=== PATIENT | male | born 1950 | race Caucasian/White ===

== ENCOUNTER 2017-02-16 09:18 | Inpatient (IN) | payer BC, OTHER ==
[~2017-02-16] VITALS: Ht 182.9 cm; Wt 113.4 kg
[2017-02-16 09:18] VITALS: BP_SYST 100
[2017-02-16] MEDS ORDERED: NACL 0.9% 1,000 ML IV ONE ×2 (09:30→11:00)
[2017-02-16 09:54] LABS: HEMATOCRIT 38.8 % (36-54); HEMOGLOBIN 13.3 g/dL (14.0-18.0); MEAN CORPUSCULAR HEMOGLOBIN 30 pg (27-31); MEAN CORPUSCULAR HGB CONC 34 % (32-36); MEAN CORPUSCULAR VOLUME 87 fL (79.0-98.0); PLATELET COUNT (AUTO) 107 K/uL (130-430); RED BLOOD CELL COUNT(AUTO) 4.45 MIL/uL (4.2-6.2)
[2017-02-16 10:01] LABS: WHITE BLOOD COUNT (AUTO) 2.7 K/uL (4.8-10.8)
[2017-02-16 10:07] LABS: CALCIUM 8.5 mg/dL (8.4-11.0); CREATININE 1.48 mg/dL (0.55-1.30); POTASSIUM 3.8 mmol/L (3.5-5.1); PROTHROMBIN TIME 10.4 SECS (9.5-12.5)
[2017-02-16 10:13] LABS: ALBUMIN 3.7 g/dL (3.4-4.8); TOTAL BILIRUBIN 0.4 mg/dL (0.0-1.0)
[2017-02-16 10:31] LABS: ATYPICAL LYMPHOCYTES % 10 % (0-0); BAND % (MANUAL) 4 % (0-6); BASOPHILS % (MANUAL) 0 % (0-2); EOSINOPHILS % (MANUAL) 0 % (0-7); LYMPHOCYTES % (MANUAL) 20 % (20-46); MONOCYTES % (MANUAL) 16 % (0-11)
[2017-02-16] MEDS ORDERED: FAMO40TA7 PO (11:34)
[2017-02-16] MEDS ORDERED: LISI40TA4 PO (11:34)
[2017-02-16] MEDS ORDERED: DUTA0.5C PO (11:34)
[2017-02-16] MEDS ORDERED: OMEG-128 PO (11:34)
[2017-02-16] MEDS ORDERED: NOR10 PO (11:34)
[2017-02-16] MEDS ORDERED: CARV12.548 PO (11:34)
[2017-02-16] MEDS ORDERED: VITD2000 PO (11:34)
[2017-02-16] MEDS ORDERED: ASA81 PO (11:34)
[2017-02-16 12:53] VITALS: BP_SYST 128
[2017-02-16] MEDS: NACL 0.9% 1,000 ML IV SCH (12:56)
[2017-02-16 13:11] VITALS: BP_SYST 128
[2017-02-16 16:00] VITALS: BP_SYST 130
[2017-02-16 20:00] VITALS: BP_SYST 150
[2017-02-17] VITALS: BP_SYST 140
[2017-02-17] MEDS ORDERED: ACETAMINOPHEN 325 MG TABLET PO PRN (00:45)
[2017-02-17] MEDS: NACL 0.9% 1,000 ML IV SCH ×2 (02:03→17:41)
[2017-02-17 04:00] VITALS: BP_SYST 143
[2017-02-17 07:55] LABS: BASOPHILS % (AUTO) 0.3 % (0.0-2.0); EOSINOPHILS % (AUTO) 0.2 % (0.0-4.0); HEMATOCRIT 38.3 % (36-54); HEMOGLOBIN 12.7 g/dL (14.0-18.0); LYMPHOCYTES # (AUTO) 0.8 K/uL (1.0-5.5); LYMPHOCYTES % (AUTO) 30.2 % (20.5-51.5); MEAN CORPUSCULAR HEMOGLOBIN 29 pg (27-31); MEAN CORPUSCULAR HGB CONC 33 % (32-36); MEAN CORPUSCULAR VOLUME 88 fL (79.0-98.0); MONOCYTES # (AUTO) 0.5 K/uL (0.0-1.0); MONOCYTES % (AUTO) 18.5 % (1.7-9.3); NEUTROPHILS # (AUTO) 1.2 K/uL (1.8-7.7); PLATELET COUNT (AUTO) 93 K/uL (130-430); RED BLOOD CELL COUNT(AUTO) 4.36 MIL/uL (4.2-6.2); RED CELL DISTRIBUTION WIDTH 12.6 % (9.0-15.0); WHITE BLOOD COUNT (AUTO) 2.6 K/uL (4.8-10.8)
[2017-02-17 07:57] VITALS: BP_SYST 130
[2017-02-17 08:14] LABS: POTASSIUM 3.5 mmol/L (3.5-5.1)
[2017-02-17 08:15] LABS: CREATININE 1.05 mg/dL (0.55-1.30)
[2017-02-17 08:19] LABS: ALBUMIN 3.3 g/dL (3.4-4.8); PHOSPHORUS 2.9 mg/dL (2.7-4.5); TOTAL BILIRUBIN 0.5 mg/dL (0.0-1.0)
[2017-02-17 08:28] LABS: NEUTROPHILS % (AUTO) 50.8 % (40.0-70.0)
[2017-02-17 13:50] VITALS: BP_SYST 130
[2017-02-17 16:00] VITALS: BP_SYST 110
== END 2017-02-17 19:30 | disposition left against medical advice (07) | DRG 312 ==
LOC: SED 09:18 → STU 11:44 → SMU 02-17 16:13
PROVIDERS: ADMIT Internal Medicine; ATTEND Internal Medicine
DX: R55 Syncope and collapse (principal); N17.9 Acute kidney failure, unspecified; I95.9 Hypotension, unspecified; D72.819 Decreased white blood cell count, unspecified; Z53.21 Procedure and treatment not carried out due to patient leaving prior to being seen by health care provider; I10 Essential (primary) hypertension; Z79.82 Long term (current) use of aspirin; Z79.899 Other long term (current) drug therapy; Z82.49 Family history of ischemic heart disease and other diseases of the circulatory system
CPT/HCPCS: 36415; 70450-TC; 80053; 82150-TC; 82550-TC; 83605; 83690-TC; 83735-TC; 84100-TC; 84484; 85007; 85025; 85027; 85610-TC; 86710; 87040-TC; 93005; 93306; 93880; 96360; 96361; 99285; J7030